=== PATIENT | female | born 1985 | race Two or more races ===

== ENCOUNTER → 2016-08-13 | Outpatient (CLI) | payer OTHER ==
[~2016-08-13] MED LIST: /MOXI40TA OR; DOCU10ELUD PO; IBUP80TA PO; PERC7.5T8 OR; PERCOCET PO; PRENTAB9 PO; TRAM50TA2 OR
== END ==
LOC: M SMT 10:44
PROVIDERS: ATTEND Physician Assistant
DX: N91.0 Primary amenorrhea (principal)

== ENCOUNTER → 2017-02-17 | Outpatient (CLI) | payer OTHER ==
[~2017-02-17] MED LIST changes: +PROHANCE 279.3MG/ML 15ML VIAL (A9576) As Ordered ONE; +PROHANCE 279.3MG/ML 5ML VIAL (A9576) As Ordered ONE
--- NOTE | 2017-02-17 17:43 | REP ---
MRI RIGHT WRIST WITH AND WITHOUT CONTRAST: TECHNIQUE: Axial, sagittal and coronal imaging planes are utilized for T1 and T2 weighted scans obtained without fat saturation. Axial T1 FS, post IV gadolinium axial and coronal T1 FS with the intravenous administration of 20 mL of gadolinium. The triangular fibrocartilage complex appears intact. The scapholunate and lunatotriquetral ligaments are intact. There is mild fluid surrounding the extensor digitorum tendons at the dorsal aspect of the wrist which may represent mild tenosynovitis and tendinitis. Carpal tunnel region is unremarkable. Flexor tendons are intact. No ganglion cyst is seen. There is mild scattered joint fluid. There is a mild amount of fluid in the distal radial ulnar joint. There is no bone marrow edema or occult fracture. There is no evidence of osteomyelitis. There is mild enhancement of the soft tissues surrounding the extensor digitorum tendons. No other abnormal enhancement is seen. IMPRESSION: Triangular fibrocartilage complexes intact. No occult fracture or osteomyelitis. Mild fluid surrounding the extensor digitorum tendons with mild surrounding enhancement most consistent with tendinitis/tenosynovitis. Signed by Andrea Pino MD 02/19/2017 04:21 P
== END ==
LOC: M RAD 14:37
PROVIDERS: ATTEND Family Medicine
DX: M25.531 Pain in right wrist (principal)
CPT/HCPCS: 73223; A9576

== ENCOUNTER → 2017-06-05 | Outpatient (CLI) | payer OTHER | LOC: M RAD 11:10 | DX: N63.14 Unspecified lump in the right breast, lower inner quadrant (principal) | CPT/HCPCS: 77066 ==

== ENCOUNTER → 2017-06-12 | Outpatient (CLI) | payer OTHER ==
[2017-06-12 18:50] LABS: HCG, SERUM QUANTITATIVE 2 MIU/ML
== END ==
LOC: M SMT 11:56
DX: O20.0 Threatened abortion (principal)
CPT/HCPCS: 84702

== ENCOUNTER → 2017-06-14 | Outpatient (CLI) | payer OTHER ==
[2017-06-14 12:29] LABS: HCG, SERUM QUANTITATIVE < 1.0 MIU/ML
== END ==
LOC: M LAB 11:39
DX: O20.0 Threatened abortion (principal)
CPT/HCPCS: 84702

== ENCOUNTER → 2017-09-12 | Outpatient (CLI) | payer OTHER ==
[2017-09-12 14:03] LABS: HCG, SERUM QUANTITATIVE 167 MIU/ML
== END ==
LOC: M SMT 09:27
DX: O20.0 Threatened abortion (principal)
CPT/HCPCS: 84702

== ENCOUNTER → 2017-10-15 | Outpatient (CLI) | payer OTHER ==
[2017-10-15 19:05] LABS: BASO % 0.6 % (0.0-1.0); EOS # 0.4 10^3/uL (0.0-0.50); EOS % 5.9 % (0.0-3.0); HEMATOCRIT 38.2 % (36.0-47.0); HEMOGLOBIN 12.7 g/dl (12.0-15.5); IMMATURE GRANULOCYTE % 0.3 % (0-3.0); LYMPH # 2.3 10^3/uL (1.5-4.5); LYMPH % 35.3 % (24.0-44.0); MEAN CORPUSCULAR HGB CONC 33.2 g/dl (32.0-36.5); MEAN CORPUSCULAR VOLUME 90.1 fl (80.0-96.0); MONO # 0.4 10^3/uL (0.0-0.8); MONO % 5.4 % (0.0-5.0); NEUTROPHILS # 3.4 10^3/uL (1.8-7.7); NEUTROPHILS % 52.5 % (36.0-66.0); PLATELET COUNT, AUTOMATED 247 10^3/uL (150-450); RED BLOOD COUNT 4.24 10^6/uL (4.00-5.40); RED CELL DISTRIBUTION WIDTH 13.8 % (11.5-14.5); WHITE BLOOD COUNT 6.5 10^3/uL (4.0-10.0)
[2017-10-15 19:14] LABS: URIC ACID 5.3 MG/DL (2.6-6.0)
[2017-10-15 19:14] LABS: C REACTIVE PROTEIN QUANTITATIV 1.16 MG/DL (0.00-0.30); RHEUMATOID FACTOR QUANT < 10.0 IU/ML (<15.0)
[2017-10-15 20:10] LABS: ERYTHROCYTE SEDIMENTATION RATE 32 mm/hr (0-20)
[2017-10-18 00:12] LABS: ANTINUCLEAR ANTIBODIES DIRECT Negative (Negative); Lyme Disease IgG/IgM Antibodie <0.91 ISR (0.00-0.90); Lyme Disease IgM Ab Quantitati <0.80 index (0.00-0.79)
== END ==
LOC: M SMT 15:35
DX: M25.562 Pain in left knee (principal)
CPT/HCPCS: 84550

== ENCOUNTER → 2017-11-07 | Outpatient (CLI) | payer OTHER ==
[~2017-11-07] MED LIST changes: -/MOXI40TA OR; +CONRAY-43 43% 50ML VIAL (Q9960) As Ordered; -DOCU10ELUD PO; -IBUP80TA PO; +LIDOCAINE 1% MDV 20ML VIAL As Ordered; -PERC7.5T8 OR; -PERCOCET PO; -PRENTAB9 PO; -PROHANCE 279.3MG/ML 15ML VIAL (A9576) As Ordered ONE; +PROHANCE 279.3MG/ML 5ML VIAL (A9576) As Ordered; -PROHANCE 279.3MG/ML 5ML VIAL (A9576) As Ordered ONE; -TRAM50TA2 OR
== END ==
LOC: M RADPRO 07:08
DX: Z47.89 Encounter for other orthopedic aftercare (principal)
CPT/HCPCS: 27093

== ENCOUNTER 2017-11-18 18:44 | Emergency (ER) | payer OTHER ==
[2017-11-18] MEDS: NS 1,000 ML IV (20:15)
[2017-11-18 20:55] LABS: APPEARANCE, URINE CLEAR (CLEAR); BACTERIA, URINE AUTO NEGATIVE (NEGATIVE); BILIRUBIN, URINE AUTO NEGATIVE (NEGATIVE); BLOOD, URINE BLOOD 3+ (NEGATIVE); COLOR, URINE STRAW (YELLOW); GLUCOSE, URINE (UA) AUTO NEGATIVE (NEGATIVE); KETONE, URINE AUTO NEGATIVE (NEGATIVE); LEUKOCYTE ESTERASE, URINE AUTO NEGATIVE (NEGATIVE); NITRITE, URINE AUTO NEGATIVE (NEGATIVE); PROTEIN, URINE AUTO NEGATIVE (NEGATIVE); RBC, URINE AUTO 126 /HPF (0-3); SPECIFIC GRAVITY URINE AUTO 1.005 (1.002-1.035); SQUAMOUS EPITHELIAL CELL UR AU 0 /HPF (0-6); UROBILINOGEN, URINE AUTO 0.2 mg/dL (0.0-2.0); WBC, URINE AUTO 3 /HPF (0-3)
[2017-11-18 20:56] LABS: BASO % 0.3 % (0.0-1.0); EOS # 0.4 10^3/uL (0.0-0.50); EOS % 2.6 % (0.0-3.0); HEMATOCRIT 39.7 % (36.0-47.0); HEMOGLOBIN 13.2 g/dl (12.0-15.5); IMMATURE GRANULOCYTE % 0.4 % (0-3.0); LYMPH # 2.7 10^3/uL (1.5-4.5); LYMPH % 19.8 % (24.0-44.0); MEAN CORPUSCULAR HEMOGLOBIN 30.1 pg (27.0-33.0); MEAN CORPUSCULAR HGB CONC 33.2 g/dl (32.0-36.5); MEAN CORPUSCULAR VOLUME 90.4 fl (80.0-96.0); MONO # 0.5 10^3/uL (0.0-0.8); MONO % 3.4 % (0.0-5.0); NEUTROPHILS # 10.1 10^3/uL (1.8-7.7); NEUTROPHILS % 73.5 % (36.0-66.0); PLATELET COUNT, AUTOMATED 244 10^3/uL (150-450); RED BLOOD COUNT 4.39 10^6/uL (4.00-5.40); RED CELL DISTRIBUTION WIDTH 13.3 % (11.5-14.5); WHITE BLOOD COUNT 13.7 10^3/uL (4.0-10.0)
[2017-11-18] MEDS: methylPREDNISolone INJ 125 MG/2 ML VIAL (J2930) IV (20:56)
[2017-11-18] MEDS: KETOROLAC 30 MG/ML VIAL (J1885) IV (20:57)
[2017-11-18] MEDS: MORPHINE 4 MG/ML 1ML VIAL/SYRINGE (J2270) IV (20:57)
[2017-11-18 21:18] LABS: ANION GAP 6 MEQ/L (8-16); BLOOD UREA NITROGEN 7 MG/DL (7-18); C REACTIVE PROTEIN QUANTITATIV 0.95 MG/DL (0.00-0.30); CALCIUM LEVEL 8.3 MG/DL (8.5-10.1); CARBON DIOXIDE LEVEL 26 MEQ/L (21-32); CHLORIDE LEVEL 109 MEQ/L (98-107); CPK CREATINE PHOSPHOKINASE 100 U/L (26-192); CREATININE FOR GFR 1.22 MG/DL (0.55-1.30); GLOMERULAR FILTRATION RATE 55.1 (>60); GLUCOSE, FASTING 102 MG/DL (70-100); POTASSIUM SERUM 3.8 MEQ/L (3.5-5.1); SODIUM LEVEL 141 MEQ/L (136-145)
[2017-11-18 21:23] LABS: ERYTHROCYTE SEDIMENTATION RATE 25 mm/hr (0-20)
[2017-11-18] MEDS: OXYCODONE/APAP 5MG/325MG(BULK FOR ED) 1 TABLET PO (21:45)
[2017-11-18] MEDS: HYDROMORPHONE HCL 0.5 MG/ 0.5 ML SYRINGE (J1170 PER 1) IV (22:08)
[2017-11-20 15:06] LABS: ANTINUCLEAR ANTIBODIES DIRECT Negative (Negative)
== END 2017-11-18 22:33 | disposition home or self-care (01) ==
LOC: M ED 18:44
DX: H66.93 Otitis media, unspecified, bilateral (principal); M79.7 Fibromyalgia; Z87.19 Personal history of other diseases of the digestive system; F17.200 Nicotine dependence, unspecified, uncomplicated; Z88.0 Allergy status to penicillin; Z88.1 Allergy status to other antibiotic agents
CPT/HCPCS: J2270

== ENCOUNTER 2018-01-12 10:16 | Emergency (ER) | payer OTHER | END 2018-01-12 13:35 | disposition home or self-care (01) | LOC: M ED 10:16 | DX: H60.92 Unspecified otitis externa, left ear (principal); S90.32XA Contusion of left foot, initial encounter; W18.39XA Other fall on same level, initial encounter; Y92.018 Other place in single-family (private) house as the place of occurrence of the external cause; M79.7 Fibromyalgia; Z88.0 Allergy status to penicillin; Z88.1 Allergy status to other antibiotic agents | CPT/HCPCS: 73630 ==

== ENCOUNTER 2018-02-20 09:59 | Outpatient (RCR) | payer OTHER | END 2018-02-25 | LOC: M PT 09:59 | DX: Z47.89 Encounter for other orthopedic aftercare (principal); M25.552 Pain in left hip; Z98.890 Other specified postprocedural states | CPT/HCPCS: 97110 ==

== ENCOUNTER 2018-05-01 16:30 | Emergency (ER) | payer OTHER ==
[~2018-05-01] VITALS: Ht 160 cm; Wt 100.0 kg
[~2018-05-01 16:30] MED LIST changes: +/MOXI40TA OR; -CONRAY-43 43% 50ML VIAL (Q9960) As Ordered; +DOCU10ELUD PO; +IBUP80TA PO; -LIDOCAINE 1% MDV 20ML VIAL As Ordered; +MUPI2OI TOP; +NEOM1SOL17 AS; +PERC5TAB12 PO; +PERC7.5T8 OR; +PERCOCET PO; +PRENTAB9 PO; -PROHANCE 279.3MG/ML 5ML VIAL (A9576) As Ordered; +TRAM50TA2 OR; +ZITHTAB PO
[2018-05-01 16:31] VITALS: BP 134/61
[2018-05-01] MEDS ORDERED: PREN1TAB15 PO (16:49)
[2018-05-01] MEDS ORDERED: METOCLOPRAMIDE INJ 10MG/2ML VIAL (J2765) IV ONE (17:30)
[2018-05-01] MEDS ORDERED: NS 1,000 ML IV ONE (17:30)
[2018-05-01 18:06] LABS: BASO % 0.5 % (0.0-1.0); EOS # 0.2 10^3/uL (0.0-0.50); EOS % 2.7 % (0.0-3.0); HEMATOCRIT 38.4 % (36.0-47.0); HEMOGLOBIN 12.8 g/dl (12.0-15.5); LYMPH # 2.5 10^3/uL (1.5-4.5); LYMPH % 29.1 % (24.0-44.0); MEAN CORPUSCULAR HEMOGLOBIN 29.6 pg (27.0-33.0); MEAN CORPUSCULAR HGB CONC 33.3 g/dl (32.0-36.5); MEAN CORPUSCULAR VOLUME 88.9 fl (80.0-96.0); MONO # 0.5 10^3/uL (0.0-0.8); MONO % 5.9 % (0.0-5.0); NEUTROPHILS # 5.4 10^3/uL (1.8-7.7); NEUTROPHILS % 61.7 % (36.0-66.0); PLATELET COUNT, AUTOMATED 244 10^3/uL (150-450); RED BLOOD COUNT 4.32 10^6/uL (4.00-5.40); WHITE BLOOD COUNT 8.7 10^3/uL (4.0-10.0)
[2018-05-01 19:41] LABS: ALBUMIN 3.5 GM/DL (3.2-5.2); ALT/SGPT 21 U/L (12-78); BILIRUBIN,DIRECT < 0.1 MG/DL (0.0-0.2); BILIRUBIN,TOTAL 0.1 MG/DL (0.2-1.0); BLOOD UREA NITROGEN 4 MG/DL (7-18); CALCIUM LEVEL 8.8 MG/DL (8.5-10.1); CARBON DIOXIDE LEVEL 25 MEQ/L (21-32); CHLORIDE LEVEL 106 MEQ/L (98-107); CREATININE FOR GFR 0.78 MG/DL (0.55-1.30); GLOMERULAR FILTRATION RATE > 60.0 (>60); GLUCOSE, FASTING 85 MG/DL (70-100); HCG, SERUM QUANTITATIVE 8406 MIU/ML; LIPASE 75 U/L (73-393); POTASSIUM SERUM 4.2 MEQ/L (3.5-5.1); SODIUM LEVEL 140 MEQ/L (136-145); TOTAL PROTEIN 7.1 GM/DL (6.4-8.2)
--- NOTE | 2018-05-01 20:58 | REPVR ---
EXAM: US , Transvaginal EXAM DATE/TIME: 05/01/2018 8:00 PM CLINICAL HISTORY: 32 years old, female; Pain; Other: Abd pain; Gestational age or lmp: 6w 4d; TECHNIQUE: Real-time transvaginal obstetrical ultrasound of the maternal pelvis and a first trimester with image documentation. Transvaginal imaging was used for better evaluation of the fetus and adnexa. COMPARISON: No relevant prior studies available. FINDINGS: GESTATION: Gestation: There is a single intrauterine gestational sac. Heart rate: Cardiac activity is noted at a rate of 126 beats per minute. Placenta: Unremarkable. No subchorionic bleed. BIOMETRY: Creola-Rump length: There is a pole with a crown-rump length measurement of 0.72 cm for a menstrual age of 6 weeks and 4 days. MATERNAL: Uterus: Endovaginally, the uterus measures 7.9 x 4.6 x 5.8 cm. Right adnexa: The right ovary measures 1.8 x 2 x 1.2 cm. Left adnexa: The left ovary measures 1 x 2.2 x 1.3 cm. Blood flow seen in the left ovary on color Doppler and postoperative examination. IMPRESSION: Single live intrauterine with an estimated menstrual age of 6 weeks and 4 days. Expected date of delivery 12/21/2018. Electronically signed by: Lia Guerrero On 05/01/2018 20:58:26 PM
[2018-05-01] MEDS ORDERED: ZOFR4TAB14 PO (21:27)
== END 2018-05-01 22:02 | disposition home or self-care (01) ==
LOC: M ED 16:30
DX: O21.9 Vomiting of pregnancy, unspecified (principal); O99.89 Other specified diseases and conditions complicating pregnancy, childbirth and the puerperium; R10.2 Pelvic and perineal pain; Z3A.01 Less than 8 weeks gestation of pregnancy; O26.891 Other specified pregnancy related conditions, first trimester; M79.7 Fibromyalgia; Z88.0 Allergy status to penicillin; Z88.1 Allergy status to other antibiotic agents; O99.331 Smoking (tobacco) complicating pregnancy, first trimester; F17.210 Nicotine dependence, cigarettes, uncomplicated
CPT/HCPCS: 36415; 76801; 76817; 80048; 80076; 81001; 83690; 84702; 85025; 93976; 96361; 96374; 99284; J2765

== ENCOUNTER → 2018-05-04 | Outpatient (CLI) | payer OTHER ==
[~2018-05-04] MED LIST changes: +PREN1TAB15 PO; +ZOFR4TAB14 PO
== END ==
LOC: M LAB 13:36
PROVIDERS: ATTEND Family Medicine
DX: Z32.00 Encounter for pregnancy test, result unknown (principal)

== ENCOUNTER → 2018-05-12 | Outpatient (CLI) | payer OTHER ==
[2018-05-12 13:52] LABS: BASO % 0.5 % (0.0-1.0); EOS # 0.3 10^3/uL (0.0-0.50); EOS % 3.6 % (0.0-3.0); HEMATOCRIT 37.6 % (36.0-47.0); HEMOGLOBIN 12.3 g/dl (12.0-15.5); LYMPH # 2.6 10^3/uL (1.5-4.5); LYMPH % 33.3 % (24.0-44.0); MEAN CORPUSCULAR HEMOGLOBIN 29.6 pg (27.0-33.0); MEAN CORPUSCULAR HGB CONC 32.7 g/dl (32.0-36.5); MEAN CORPUSCULAR VOLUME 90.6 fl (80.0-96.0); MONO # 0.4 10^3/uL (0.0-0.8); MONO % 4.6 % (0.0-5.0); NEUTROPHILS # 4.5 10^3/uL (1.8-7.7); NEUTROPHILS % 57.6 % (36.0-66.0); PLATELET COUNT, AUTOMATED 232 10^3/uL (150-450); RED BLOOD COUNT 4.15 10^6/uL (4.00-5.40); WHITE BLOOD COUNT 7.8 10^3/uL (4.0-10.0)
[2018-05-12 14:13] LABS: GLUCOSE CHALLENGE TEST 1 HOUR 164 MG/DL (LESS THAN 140)
[2018-05-12 15:28] LABS: CHLAMYDIA DNA AMPLIFICATION NEGATIVE (NEGATIVE); GC DNA AMPLIFICATION NEGATIVE (NEGATIVE)
[2018-05-13 10:35] LABS: RUBELLA IgG QUALITATIVE EQUIVOCAL (IMMUNE)
[2018-05-13 11:03] LABS: HEPATITIS C VIRUS ABY INDEX 0.1 INDEX (<0.8)
[2018-05-13 11:44] LABS: HIV 1&2 SCREEN CENTAUR NEGATIVE (NEGATIVE)
== END ==
LOC: M SMT 11:07
PROVIDERS: ATTEND Obstetrics & Gynecology
DX: Z36.89 Encounter for other specified antenatal screening (principal)

== ENCOUNTER → 2018-05-18 | Outpatient (CLI) | payer OTHER | LOC: M LAB 07:57 | PROVIDERS: ATTEND Obstetrics & Gynecology | DX: Z36.89 Encounter for other specified antenatal screening (principal); Z3A.00 Weeks of gestation of pregnancy not specified ==

== ENCOUNTER 2018-05-26 14:09 | Emergency (ER) | payer OTHER ==
[~2018-05-26] VITALS: Ht 160 cm; Wt 95.5 kg
[2018-05-26] MEDS ORDERED: NORCO, ANEXSIA 5/325MG TABLET (HYDROcodone/ACETAMINOPHEN) PO ONE ×2 (14:30→16:00)
--- NOTE | 2018-05-26 15:11 | REP ---
Clinical: Trauma/fall. Technique: AP, lateral, oblique views of the right ankle. Findings: There is a nondisplaced oblique fracture involving the distal tibial metaphysis extending to the articular surface. Overlying soft tissue swelling noted. A small avulsion fracture at the tip of the medial malleolus is also identified. Impression: Nondisplaced oblique fracture of the distal tibial metaphysis extends to the articular surface. Small avulsion fracture of the medial malleolus. Electronically Signed by Bryce Nunn MD 05/26/2018 03:03 P
[2018-05-26 16:02] VITALS: BP 112/76
== END 2018-05-26 16:16 | disposition home or self-care (01) ==
LOC: M ED 14:09
DX: O9A.211 Injury, poisoning and certain other consequences of external causes complicating pregnancy, first trimester (principal); S82.234A Nondisplaced oblique fracture of shaft of right tibia, initial encounter for closed fracture; X50.9XXA Other and unspecified overexertion or strenuous movements or postures, initial encounter; Y92.410 Unspecified street and highway as the place of occurrence of the external cause; Z3A.10 10 weeks gestation of pregnancy; Z88.0 Allergy status to penicillin; Z88.1 Allergy status to other antibiotic agents; O99.331 Smoking (tobacco) complicating pregnancy, first trimester; F17.210 Nicotine dependence, cigarettes, uncomplicated

== ENCOUNTER 2018-05-26 21:49 | Emergency (ER) | payer OTHER ==
[~2018-05-26] VITALS: Ht 160 cm; Wt 100.0 kg
[2018-05-26 22:00] VITALS: BP 108/58
[2018-05-26] MEDS ORDERED: ACETAMINOPHEN 325 MG TAB PO ONE (22:30)
[2018-05-26] MEDS ORDERED: METOCLOPRAMIDE INJ 10MG/2ML VIAL (J2765) IV ONE (22:30)
--- NOTE | 2018-05-26 23:42 | REPVR ---
EXAM: US Duplex Right Lower Extremity Veins, Limited EXAM DATE/TIME: 05/26/2018 11:31 PM CLINICAL HISTORY: 32 years old, female; Pain; Other: Ankle; Prior surgery; Surgery date: 6+ months; Additional info: Prev. HX, preg, distal tib FX TECHNIQUE: Real-time Duplex ultrasound of the Right Lower Extremity with 2-D jimenez scale, color Doppler flow and spectral waveform analysis. Limited exam was focused on the right lower extremity veins. COMPARISON: US Duplex, Ext,LOWER veins,unilat 03/19/2014 3:59 PM FINDINGS: Right deep veins: Unremarkable. The common femoral, femoral, proximal profunda femoral and popliteal veins are patent without thrombus. Normal Doppler waveforms. Normal compressibility and/or augmentation response. Right superficial veins: Unremarkable. Saphenofemoral junction is patent without thrombus. Soft tissues: Unremarkable. IMPRESSION: No acute findings. No evidence of deep vein thrombosis. Electronically signed by: Petros Durand On 05/26/2018 23:42:13 PM
--- NOTE | 2018-05-27 07:54 | REP ---
Clinical: Trauma. Technique: AP and lateral views of the right tibia / fibula. Findings: Nondisplaced posterior and medial malleolar fractures are identified of the distal tibia. Remainder examination appears normal. Impression: Nondisplaced medial and posterior malleolar fractures of the distal tibia. Electronically Signed by Bryce Nunn MD 05/27/2018 07:45 A
== END 2018-05-27 01:01 | disposition home or self-care (01) ==
LOC: EDBD 21:49 → M ED 21:49
DX: S82.301D Unspecified fracture of lower end of right tibia, subsequent encounter for closed fracture with routine healing (principal); X58.XXXD Exposure to other specified factors, subsequent encounter; Y92.89 Other specified places as the place of occurrence of the external cause; M79.7 Fibromyalgia; Z88.0 Allergy status to penicillin; Z88.1 Allergy status to other antibiotic agents
CPT/HCPCS: 73590; 93971; 96374; 99284; J2765

== ENCOUNTER → 2018-07-06 | Outpatient (CLI) | payer OTHER | LOC: M LAB 10:17 | PROVIDERS: ATTEND Advanced Practice Midwife | DX: Z34.82 Encounter for supervision of other normal pregnancy, second trimester (principal); Z36.89 Encounter for other specified antenatal screening ==

== ENCOUNTER → 2018-07-24 | Outpatient (CLI) | payer OTHER ==
--- NOTE | 2018-07-24 16:57 | REP ---
Clinical: Anatomical evaluation. Comparison: None . Findings: Examination demonstrates a single live intrauterine in variable presentation. motion is identified by technologist. Placenta is low-lying, posterior and grade zero approximately 1.6 cm from the closed internal os. Amniotic fluid volume is normal. Cervix measures 3.9 cm in length and appears closed. No evidence for nuchal cord. Gestational age by LMP 19 weeks 6 days with ADRIANO 12/12/2018 . Gestational age by current measurements 19 weeks 1 day with ADRIANO 12/17/2018 . FHR equals 153 beats per minute. BPD 4.1 cm 18 weeks 3 days HC 15.9 cm 18 weeks 5 days AC 14.6 cm 19 weeks 6 days FL 3.0 cm 19 weeks 2 days HL 2.9 cm 19 weeks 3 days HC/AC ratio 1.09 Estimated weight 293 grams ( 31st percentile). Anatomical assessment demonstrates normal structures including choroid plexus, cerebellum/posterior fossa, diaphragm, stomach, three-vessel cord, and bladder. Impression: 1. Low-lying placenta 1.6 cm from the closed internal os. 2. Appropriate interval growth. 3. Limited anatomical assessment warrants reevaluation and follow-up. Electronically Signed by Bryce Nunn MD 07/24/2018 04:49 P
== END ==
LOC: M RAD 14:24
PROVIDERS: ATTEND Advanced Practice Midwife
DX: O24.112 Pre-existing type 2 diabetes mellitus, in pregnancy, second trimester (principal); Z3A.19 19 weeks gestation of pregnancy

== ENCOUNTER → 2018-08-20 | Outpatient (CLI) | payer OTHER ==
[~2018-08-20] MED LIST changes: -/MOXI40TA OR; +AVEL1TAB2 OR; +CORTOTSO AS; -DOCU10ELUD PO; +DOCU5LIQ PO; -NEOM1SOL17 AS; +OXYC1TAB23 PO; -PERCOCET PO
--- NOTE | 2018-08-20 11:46 | REP ---
OB ULTRASOUND: Real-time sonographic evaluation of the gravid uterus is performed. There is a single living intrauterine gestation. Estimated gestational age 23 weeks 5 days, EDC 12/12/2018. Today's measurements indicate appropriate growth. BPD 54 mm = 22 weeks 3 days, 17th percentile HC 207 mm = 22 weeks 5 days, 22nd percentile AC 197 mm = 24 weeks 2 days, 63rd percentile Femur length 43 mm = 23 weeks 6 days, 54th percentile HC/AC ratio 1.05 within normal range. Estimated weight 641 grams, 50th percentile. Cervix is closed and measures 3.8 cm in length. heart rate 163 beats per minute. SEEN/GROSSLY UNREMARKABLE Lateral ventricles Yes Posterior fossa No Upper lip Yes Four-chamber heart Yes LVOT No RVOT No Stomach Yes Cord insertion Yes Three vessel cord Yes Kidneys Yes Bladder Yes Spine Yes position: Vertex. Placenta: Posterior and grade 0 with no previa or abruption. Amniotic fluid: Within normal limits. Electronically Signed by Andrea Pino MD 08/20/2018 04:36 P
== END ==
LOC: M RAD 09:53
PROVIDERS: ATTEND Advanced Practice Midwife
DX: O24.112 Pre-existing type 2 diabetes mellitus, in pregnancy, second trimester (principal); Z3A.23 23 weeks gestation of pregnancy

== ENCOUNTER → 2018-09-04 | Outpatient (CLI) | payer OTHER ==
--- NOTE | 2018-09-04 18:05 | REP ---
OB ULTRASOUND: Real-time sonographic evaluation of the gravid uterus is performed utilizing transabdominal and endovaginal technique. There is a single living intrauterine gestation, estimated gestational age 24 weeks 4 days based on the first ultrasound, EDC 12/21/2018. Today's measurements indicate appropriate growth. BPD 58 mm = 23 weeks 6 days, 30th percentile HC 224 mm = 24 weeks 3 days, 45th percentile AC 208 mm = 25 weeks 3 days, 66th percentile FL 47 mm = 25 weeks 6 days, 75th percentile HC/AC ratio 1.07, within normal range. Estimated weight 799 grams, 65th percentile. Cervic closed and measures 3.5 cm in length. heart rate 131 beats per minute. SEEN/GROSSLY UNREMARKABLE Lateral ventricles no Posterior fossa no Upper lip no Four-chamber heart no LVOT no RVOT no Stomach yes Cord insertion yes Three vessel cord yes Kidneys no Bladder yes Spine yes position: Vertex. Placenta: Posterior and grade 1 with no previa or abruption. Amniotic fluid: Within normal limits. Electronically Signed by Andrea Pino MD 09/09/2018 11:49 A
== END ==
LOC: M RAD 14:59
PROVIDERS: ATTEND Advanced Practice Midwife
DX: O24.112 Pre-existing type 2 diabetes mellitus, in pregnancy, second trimester (principal); Z3A.24 24 weeks gestation of pregnancy

== ENCOUNTER → 2018-09-25 | Outpatient (CLI) | payer OTHER ==
--- NOTE | 2018-09-25 13:40 | REP ---
Clinical: Anatomical evaluation. Comparison: 09/04/2018 . Findings: Examination demonstrates a single live intrauterine in cephalic presentation. motion is identified by technologist. Placenta is noted posterior and grade zero without evidence for placenta previa or abruption. Amniotic fluid volume is normal. Cervix measures 3.6 cm in length and appears closed. No evidence for nuchal cord. Gestational age by LMP 28 weeks 6 days with ADRIANO 12/12/2018 . Gestational age by current measurements 27 weeks 4 days with ADRIANO 12/21/2018 . FHR equals 136 beats per minute. Estimated weight 1142 grams ( 48th percentile). Biophysical profile score: 8/8 Anatomical assessment demonstrates normal structures including cranium, choroid plexus, cavum, facial features, lungs, four-chamber heart/ventricular outflow tracts, diaphragm, stomach, cord insertion/three-vessel cord, kidneys/bladder, spine, and extremities. Impression: Single live intrauterine in cephalic presentation demonstrating appropriate interval growth. In conjunction with prior examination anatomical assessment is complete and normal. No gross abnormalities are identified. Electronically Signed by Bryce Nunn MD 09/25/2018 01:30 P
== END ==
LOC: M RAD 10:57
PROVIDERS: ATTEND Obstetrics & Gynecology
DX: O24.112 Pre-existing type 2 diabetes mellitus, in pregnancy, second trimester (principal); Z3A.28 28 weeks gestation of pregnancy

== ENCOUNTER → 2018-10-01 | Outpatient (CLI) | payer OTHER ==
[2018-10-01 11:29] LABS: HEMATOCRIT 33.1 % (36.0-47.0); HEMOGLOBIN 11.3 g/dl (12.0-15.5); MEAN CORPUSCULAR HEMOGLOBIN 31.3 pg (27.0-33.0); MEAN CORPUSCULAR HGB CONC 34.1 g/dl (32.0-36.5); MEAN CORPUSCULAR VOLUME 91.7 fl (80.0-96.0); PLATELET COUNT, AUTOMATED 207 10^3/uL (150-450); RED BLOOD COUNT 3.61 10^6/uL (4.00-5.40); WHITE BLOOD COUNT 9.4 10^3/uL (4.0-10.0)
== END ==
LOC: M LAB 11:01
PROVIDERS: ATTEND Advanced Practice Midwife
DX: O24.112 Pre-existing type 2 diabetes mellitus, in pregnancy, second trimester (principal); Z3A.00 Weeks of gestation of pregnancy not specified

== ENCOUNTER → 2018-10-16 | Outpatient (CLI) | payer OTHER ==
--- NOTE | 2018-10-16 11:16 | REP ---
OBSTETRIC SONOGRAPHY: HISTORY: Supervision of . growth study. Diabetes in . FINDINGS: Scanning through the gravid uterus demonstrates a viable single intrauterine gestation in a cephalic lie. motion is observed and heart rate is recorder 168 beats per minute. A posterior grade 2 placenta is seen without evidence of previa or abruption. Amniotic fluid is subjectively normal. No extrauterine abnormalities observed. There has been appropriate interval growth. BIOMETRY CHART: BPD 7.8 cm = 31 weeks 2 days HC 29.1 cm = 32 weeks 1 day AC 27.2 cm = 31 weeks 2 days FL 6.3 cm = 32 weeks 4 days HL 5.5 cm = 32 weeks 0 days HC/AC ratio normal 1.07 Cephalic index normal 0.74 Estimated weight 1829 grams, 4 pounds 0 ounces, 67th percentile for 30 weeks 4 days. PIETER normal 12.4 cm. Biophysical profile score 8 out of a possible 8. S/D ratio in the umbilical cord artery by Doppler normal 1.95. IMPRESSION: Viable single intrauterine gestation at 31 weeks 6 days by today's composite criteria. Expected gestational age estimate based on prior sonography 30 weeks 4 days. ADRIANO by prior sonography December 21, 2018. There has been appropriate interval growth. I Electronically Signed by Kings Castro MD 10/16/2018 03:30 P
== END ==
LOC: M RAD 09:17
PROVIDERS: ATTEND Obstetrics & Gynecology
DX: O24.112 Pre-existing type 2 diabetes mellitus, in pregnancy, second trimester (principal); Z3A.31 31 weeks gestation of pregnancy

== ENCOUNTER → 2018-11-05 | Outpatient (CLI) | payer OTHER, MEDICAID ==
[2018-11-05 18:59] LABS: ALBUMIN 2.8 GM/DL (3.2-5.2); ALT/SGPT 13 U/L (12-78); AMYLASE 45 U/L (25-115); BILIRUBIN,TOTAL 0.3 MG/DL (0.2-1.0); BLOOD UREA NITROGEN 5 MG/DL (7-18); CALCIUM LEVEL 8.4 MG/DL (8.5-10.1); CARBON DIOXIDE LEVEL 22 MEQ/L (21-32); CHLORIDE LEVEL 109 MEQ/L (98-107); CREATININE FOR GFR 0.52 MG/DL (0.55-1.30); GLOMERULAR FILTRATION RATE > 60.0 (>60); GLUCOSE, FASTING 77 MG/DL (70-100); LIPASE 71 U/L (73-393); POTASSIUM SERUM 4.2 MEQ/L (3.5-5.1); SODIUM LEVEL 139 MEQ/L (136-145); TOTAL PROTEIN 6.2 GM/DL (6.4-8.2)
[2018-11-05 19:05] LABS: HEMATOCRIT 34.6 % (36.0-47.0); HEMOGLOBIN 11.4 g/dl (12.0-15.5); MEAN CORPUSCULAR HEMOGLOBIN 30.2 pg (27.0-33.0); MEAN CORPUSCULAR HGB CONC 32.9 g/dl (32.0-36.5); MEAN CORPUSCULAR VOLUME 91.5 fl (80.0-96.0); PLATELET COUNT, AUTOMATED 212 10^3/uL (150-450); RED BLOOD COUNT 3.78 10^6/uL (4.00-5.40)
[2018-11-05 19:08] LABS: APPEARANCE, URINE CLEAR (CLEAR); BACTERIA, URINE AUTO NEGATIVE (NEGATIVE); BILIRUBIN, URINE AUTO NEGATIVE (NEGATIVE); BLOOD, URINE BLOOD NEGATIVE (NEGATIVE); COLOR, URINE YELLOW (YELLOW); GLUCOSE, URINE (UA) AUTO NEGATIVE (NEGATIVE); KETONE, URINE AUTO NEGATIVE (NEGATIVE); LEUKOCYTE ESTERASE, URINE AUTO NEGATIVE (NEGATIVE); MUCUS, URINE SMALL (NEGATIVE); NITRITE, URINE AUTO NEGATIVE (NEGATIVE); PROTEIN, URINE AUTO NEGATIVE (NEGATIVE); RBC, URINE AUTO 2 /HPF (0-3); SPECIFIC GRAVITY URINE AUTO 1.019 (1.002-1.035); SQUAMOUS EPITHELIAL CELL UR AU 1 /HPF (0-6); WBC, URINE AUTO 1 /HPF (0-3)
== END ==
LOC: M SMT 11:04
PROVIDERS: ATTEND Obstetrics & Gynecology
DX: O24.311 Unspecified pre-existing diabetes mellitus in pregnancy, first trimester (principal); Z3A.00 Weeks of gestation of pregnancy not specified

== ENCOUNTER → 2018-11-06 | Outpatient (CLI) | payer OTHER ==
--- NOTE | 2018-11-06 16:14 | REP ---
Obstetric sonography: History: Supervision of growth study. Gestational diabetes. Biophysical profile score. Findings: Scanning demonstrates a viable single intrauterine gestation in a cephalic lie. motion is observed and heart rate is recorded at 130 beats per minute. A right posterior lateral placenta is seen grade 2 without evidence of previa. Amniotic fluid is subjectively normal. Closed cervical length is 2.6 cm. No extrauterine abnormalities observed. There has been appropriate interval growth. Umbilical cord is seen draping across the shoulders. Exam quality was inhibited by gestational age and crowding. The following anatomic structures were identified today and felt to be unremarkable: cranium, face and profile, lungs, diaphragm, left-sided stomach, abdominal wall cord insertion, three-vessel cord, kidneys and bladder, and spine. Biometry chart: BPD 8.3 cm 33 weeks 2 days Head circumference 30.9 cm 34 weeks 3 days Abdominal circumference 30.3 cm 34 weeks 2 days Femur length to 6.4 cm 33 weeks 2 days Humeral length 6.0 cm 34 weeks 6 days HC/AC ratio normal 1.02, cephalic index normal 0.74, estimated weight 2307 grams, 5 pounds 1 ounce, 51st percentile for 33 weeks 4 days. Biophysical profile score eight out of a possible eight. PIETER normal 10.7 cm. SD ratio normal 2.56 by Doppler. Impression: Viable single intrauterine gestation at 34 weeks 0 days by today's composite criteria. Expected gestational age estimate based on prior sonography is 33 weeks 4 days. ADRIANO by prior sonography of 12/21/2018. There has been appropriate interval growth. Electronically Signed by Kings Castro MD 11/06/2018 08:21 P
== END ==
LOC: M RAD 11:00
PROVIDERS: ATTEND Obstetrics & Gynecology
DX: O24.113 Pre-existing type 2 diabetes mellitus, in pregnancy, third trimester (principal); Z3A.34 34 weeks gestation of pregnancy

== ENCOUNTER → 2018-11-13 | Outpatient (CLI) | payer OTHER ==
--- NOTE | 2018-11-13 20:54 | REP ---
OB ULTRASOUND AND BIOPHYSICAL PROFILE: Real-time sonographic evaluation of the gravid uterus performed. There is a single living intrauterine gestation, estimated gestational age 34 weeks 4 days, EDC 12/21/2018. Cervix is closed and measures approximately 2.7 cm in length. heart rate 135 beats per minute. Amniotic fluid within normal limits, PIETER 10.4 with a normal range of 8.0 to 24.9. Biophysical profile score 8/8. S/D ratio 2.94 and RI 0.66 within normal range. position vertex. Placenta is grade 3 and posterior with no previa or abruption. Electronically Signed by Andrea Pino MD 11/15/2018 09:13 P
== END ==
LOC: M RAD 18:04
PROVIDERS: ATTEND Obstetrics & Gynecology
DX: O24.113 Pre-existing type 2 diabetes mellitus, in pregnancy, third trimester (principal); Z3A.34 34 weeks gestation of pregnancy

== ENCOUNTER → 2018-11-20 | Outpatient (CLI) | payer OTHER ==
--- NOTE | 2018-11-20 12:22 | REP ---
OB ULTRASOUND, BIOPHYSICAL PROFILE: Real-time sonographic evaluation of the gravid uterus performed. There is a single living intrauterine gestation. The estimated gestational age is reportedly 35 weeks 4 days, EDC 12/21/2018. heart rate is 129 beats per minute. Amniotic fluid is within normal limits, PIETER 11.9 within normal range of 7.8 to 24.9. Biophysical profile score 8/8. S/D ratio 2.42 within normal range of 2.0 to 3.0. RI 0.59 within normal range of 0.59 to 0.75. position is vertex. Placenta posterior and fundal and grade 2 with no previa or abruption. Electronically Signed by Andrea Pino MD 11/24/2018 05:30 P
== END ==
LOC: M RAD 11:06
PROVIDERS: ATTEND Obstetrics & Gynecology
DX: O24.113 Pre-existing type 2 diabetes mellitus, in pregnancy, third trimester (principal); Z3A.35 35 weeks gestation of pregnancy

== ENCOUNTER → 2018-11-23 | Outpatient (REF) | payer OTHER | LOC: M LAB REF 17:18 | PROVIDERS: ATTEND Obstetrics & Gynecology | DX: O24.113 Pre-existing type 2 diabetes mellitus, in pregnancy, third trimester (principal); Z3A.00 Weeks of gestation of pregnancy not specified ==

== ENCOUNTER → 2018-11-27 | Outpatient (CLI) | payer OTHER ==
[~2018-11-27] MED LIST changes: +LOVE1INJ SC; +TUMS500C PO; +tylenol pm PO
--- NOTE | 2018-11-27 11:32 | REP ---
Clinical: Growth evaluation. Comparison: 11/20/2018 Findings: Examination demonstrates a single live intrauterine in cephalic presentation. motion is identified by technologist. Placenta is noted posterior/right lateral and grade II without evidence for placenta previa or abruption. Amniotic fluid volume is normal. Cervix appears closed. No evidence for nuchal cord. Gestational age by LMP 36 weeks 4 days with ADRIANO 12/21/2018. Gestational age by current measurements 36 weeks 0 days with ADRIANO 12/25/2018. FHR equals 163 beats per minute. BPD 8.9 cm 35 weeks 6 days HC 31.9 cm 36 weeks 0 days AC 31.3 cm 35 weeks 2 days FL 7.1 cm 36 weeks 3 days HL 6.3 cm 36 weeks 5 days HC/AC ratio 1.02 Estimated weight 2739 grams ( 37 percentile). Biophysical profile score: 12/03 Amniotic fluid index: 17.0 cm Umbilical cord SD ratio: 1.56 Impression: Single live advanced gestation in cephalic presentation demonstrating appropriate interval growth. Biophysical profile score and amniotic fluid volume are normal. Electronically Signed by Bryce Nunn MD 11/27/2018 11:24 A
== END ==
LOC: M RAD 10:36
PROVIDERS: ATTEND Obstetrics & Gynecology
DX: O24.113 Pre-existing type 2 diabetes mellitus, in pregnancy, third trimester (principal); Z3A.36 36 weeks gestation of pregnancy

== ENCOUNTER → 2018-12-04 | Outpatient (CLI) | payer OTHER ==
[~2018-12-04] MED LIST changes: +HEPA10009 IJ
--- NOTE | 2018-12-05 09:58 | REP ---
LIMITED OB ULTRASOUND: Real-time ultrasound evaluation of the gravid uterus performed. There is a single living intrauterine gestation, the estimated gestational age is reportedly 37 weeks 4 days, EDC 12/21/2018. heart rate 133 beats per minute. Amniotic fluid is within normal limits, PIETER 13.1 with a normal range of 7.4 to 24.1. Biophysical profile score 8/8. S/D ratio 2.10, with a normal range of 1.6 to 2.6. RI 0.52, below normal range of 0.59 to 0.75. position vertex. Placenta posterior, fundal and grade 2 with no previa or abruption. Electronically Signed by Andrea Pino MD 12/07/2018 11:37 A
== END ==
LOC: M RAD 14:21
PROVIDERS: ATTEND Obstetrics & Gynecology
DX: O24.113 Pre-existing type 2 diabetes mellitus, in pregnancy, third trimester (principal); Z3A.37 37 weeks gestation of pregnancy

== ENCOUNTER 2018-12-07 09:30 | Inpatient (IN) | payer OTHER ==
[~2018-12-07] VITALS: Ht 160 cm; Wt 94.3 kg
[~2018-12-07 09:30] MED LIST changes: -HEPA10009 IJ
[2018-12-16] MEDS ORDERED: LR 1,000 ML IV SCH (06:21)
[2018-12-16] MEDS ORDERED: LACTATED RINGER'S 1000 ML IV STA (06:21)
[2018-12-16] MEDS ORDERED: HEPA10009 IJ (06:24)
[2018-12-16] MEDS ORDERED: BICITRA 30ML SOLN UDC PO ONE (06:30)
[2018-12-16] MEDS ORDERED: CLINDAMYCIN 900 MG in APPROPRIATE DILUENT 1 EA IV ONE (06:30)
[2018-12-16] MEDS ORDERED: MORPHINE PRES-FREE INJ 10 MG/10 ML VIAL (J2274) As Ordered ONE (07:12)
[2018-12-16] MEDS ORDERED: OXYTOCIN INJ 10 UNITS/ML VIAL (J2590) As Ordered ONE ×2 (07:12→09:03)
[2018-12-16 07:14] LABS: HEMATOCRIT 34.1 % (36.0-47.0); HEMOGLOBIN 11.7 g/dl (12.0-15.5); MEAN CORPUSCULAR HEMOGLOBIN 31.3 pg (27.0-33.0); MEAN CORPUSCULAR HGB CONC 34.3 g/dl (32.0-36.5); MEAN CORPUSCULAR VOLUME 91.2 fl (80.0-96.0); PLATELET COUNT, AUTOMATED 198 10^3/uL (150-450); RED BLOOD COUNT 3.74 10^6/uL (4.00-5.40); WHITE BLOOD COUNT 10.4 10^3/uL (4.0-10.0)
[2018-12-16] MEDS ORDERED: ONDANSETRON 4MG/2ML VIAL (J2405) IV PRN ×3 (07:52→10:00)
[2018-12-16] MEDS ORDERED: NALBUPHINE HCL 10 MG/ML AMP (J2300) IV PRN ×2 (07:52→10:00)
[2018-12-16] MEDS ORDERED: NALOXONE INJ 0.4 MG/1 ML VIAL (J2310) IV PRN ×2 (07:52)
[2018-12-16] MEDS ORDERED: METOCLOPRAMIDE INJ 10MG/2ML VIAL (J2765) IV PRN (07:52)
[2018-12-16] MEDS ORDERED: PHENYLephrine HCL 500 MCG/5 ML (100MCG/ML) SYRINGE (J2370) As Ordered ONE (08:05)
[2018-12-16] MEDS ORDERED: ONDANSETRON 4MG/2ML VIAL (J2405) As Ordered ONE (08:05)
[2018-12-16] MEDS ORDERED: dexameTHASONE 4 MG/ML 1ML VIAL (J1100) As Ordered ONE ×2 (08:05→09:03)
[2018-12-16] MEDS: DOCUSATE SODIUM 100 MG CAP PO SCH ×2 (09:00→20:37)
[2018-12-16] MEDS: PRENATAL VITAMINS CHEWABLE TABLET PO SCH (09:00)
[2018-12-16] MEDS ORDERED: AZTREONAM 2 GM in D5W MINI-BAG PLUS 50 ML IV ONE (09:00)
[2018-12-16] MEDS ORDERED: OXYTOCIN 30 UNITS IN 0.9% NaCl 500ML IV BAG (J2590) As Ordered ONE (09:20)
[2018-12-16] MEDS ORDERED: RHOGAM 300 MCG (1500 IU) INJ (J2790) IM SCH (09:30)
[2018-12-16] MEDS ORDERED: MOM 30ML SUSPENSION UDC PO PRN (09:30)
[2018-12-16] MEDS ORDERED: MEASLES,MUMPS,RUBELLA VACCINE INJ (MMR-II) (90707) SC SCH (09:30)
[2018-12-16] MEDS ORDERED: OXYTOCIN DRIP 30 UNITS in APPROPRIATE DILUENT 1 EA IV SCH (09:30)
[2018-12-16] MEDS ORDERED: OXYC1TAB23 PO (09:44)
[2018-12-16] MEDS ORDERED: diphenhydrAMINE INJ 50MG/ML VIAL (J1200) IV PRN ×2 (10:00)
[2018-12-16] MEDS ORDERED: fentaNYL 100 MCG/2 ML INJECTION (J3010) IV PRN (10:00)
[2018-12-16] MEDS ORDERED: oxyCODONE 5MG TAB PO PRN (10:00)
[2018-12-16 11:08] VITALS: BP 94/53
[2018-12-16 11:45] VITALS: BP 98/52
[2018-12-16 12:15] VITALS: BP 96/50
[2018-12-16] MEDS: diphenhydrAMINE INJ 50MG/ML VIAL (J1200) IV PRN ×2 (13:39→20:37)
[2018-12-16 13:45] VITALS: BP 98/56
[2018-12-16] MEDS: LR 1,000 ML IV SCH (14:57)
[2018-12-16 16:38] VITALS: BP 100/52
[2018-12-16 18:00] VITALS: BP 109/51
[2018-12-16] MEDS: ENOXAPARIN 40 MG/0.4 ML SYRINGE (J1650) SC SCH (20:37)
[2018-12-17] VITALS (7 sets, daily range): BP systolic 91–115; BP diastolic 51–62
[2018-12-17] MEDS: LR 1,000 ML IV SCH (01:43)
[2018-12-17] MEDS: PERCOCET 5MG/325MG TAB PO PRN ×6 (01:59→22:51)
[2018-12-17 07:09] LABS: HEMOGLOBIN 10.4 g/dl (12.0-15.5); MEAN CORPUSCULAR HEMOGLOBIN 31.1 pg (27.0-33.0); MEAN CORPUSCULAR HGB CONC 33.5 g/dl (32.0-36.5); MEAN CORPUSCULAR VOLUME 92.8 fl (80.0-96.0); PLATELET COUNT, AUTOMATED 195 10^3/uL (150-450); RED BLOOD COUNT 3.34 10^6/uL (4.00-5.40); WHITE BLOOD COUNT 12.5 10^3/uL (4.0-10.0)
[2018-12-17] MEDS: PRENATAL VITAMINS CHEWABLE TABLET PO SCH (07:43)
--- NOTE | 2018-12-17 08:02 | RO ---
DATE OF PROCEDURE: 12/16/2018 PREOPERATIVE DIAGNOSES: 1. History of prior two sections, for repeat section. 2. Satisfied parity with undesired fertility. POSTPROCEDURE DIAGNOSIS: 1. History of prior two sections, for repeat section. 2. Satisfied parity with undesired fertility. PROCEDURE PERFORMED: Repeat section with bilateral tubal ligation using Renova method. SURGEON: Kassy Cade MD [employer] REPRESENTATIVE: Loreta Lemons CNM ANESTHESIA: Spinal. ESTIMATED BLOOD LOSS: 500 mL. IV FLUIDS: 1700 mL of lactated Ringer's solution URINE OUTPUT: 25 mL. PREOPERATIVE ANTIBIOTICS: 900 mg of clindamycin, 2 grams of Azactam. OPERATIVE FINDINGS: Live born male infant, scores 9 and 9, weight was 7 pounds 2 ounces, 3230 grams. SPECIMENS: Cord blood and bilateral segments of fallopian tube. DESCRIPTION OF OPERATION: After informed consent was obtained and written consent was reviewed, the patient brought to the operating room where spinal anesthesia was then placed. She was then placed in supine position with a left lateral tilt. Keller catheter was placed and set to gravity. She was then prepped and draped in normal sterile fashion. Time out in the operating room was then performed identifying the patient, procedure to be performed, as well as drug allergies. Anesthesia was tested and deemed to be adequate. Pfannenstiel skin incision was then made along the previous skin incision and this was carried down to the underlying rectus fascia. Fascia was scored and this incision was extended bilaterally. The fascia was then dissected off the underlying rectus muscles, both superiorly and inferiorly. The rectus muscles were in the midline. The peritoneum was then entered sharply. The bladder blade was then placed to retract back the bladder. Curvilinear incision was then made in the lower uterine segment. Amniotomy was then performed productive of clear fluid. The uterine incision was then extended. head was brought to the level of the incision atraumatically and delivered, along with shoulders and corpus. Cord was clamped times two and the was then delivered over to the warmer table with a good cry. Cord blood was then obtained. Placenta was delivered grossly intact. The uterus and then exteriorized and cleared of all clots and debris. The uterine incision was then closed in two layers, first in a running locking fashion followed by second layer for imbrication in a running nonlocking fashion. The abdomen was then suctioned, irrigated. Severe figure of eight stitches were placed for hemostasis along the uterine incision. Bilateral Renova tubal ligation was then performed. A window was created in the right mesosalpinx. This area was double ligated with chromic and was excised with good hemostasis noted. In a similar fashion, left fallopian tube was placed on traction. A window was created in the mesosalpinx. An area was doubly ligated with 3-0 chromic and was excised with good hemostasis noted. The uterus was then returned to the patient's abdomen and surgical sites were inspected and noted to be hemostatic. Anterior peritoneum was then reapproximated with 3-0 Vicryl. The fascia was then closed with 0 Vicryl in a running nonlocking fashion. Subcutaneous tissue was then irrigated and suctioned. Subcutaneous tissue was reapproximated with 3-0 Vicryl. Several subdermal stitches were placed with 3-0 Vicryl. The skin was closed with 4-0 Monocryl in a subcuticular fashion. The incision was then cleaned and dried. Steri-Strips applied over the incision. The incision was then dressed. The patient was then taken to recovery in stable condition. Counts were correct. MTDD
[2018-12-17] MEDS: DOCUSATE SODIUM 100 MG CAP PO SCH ×2 (09:20→20:34)
[2018-12-17] MEDS: ENOXAPARIN 40 MG/0.4 ML SYRINGE (J1650) SC SCH (20:34)
[2018-12-18 02:00] VITALS: BP 111/55
[2018-12-18] MEDS: PERCOCET 5MG/325MG TAB PO PRN ×3 (03:07→12:02)
[2018-12-18 06:00] VITALS: BP 109/56
[2018-12-18] MEDS ORDERED: LOVE1INJ SC (06:37)
[2018-12-18] MEDS: DOCUSATE SODIUM 100 MG CAP PO SCH (10:09)
[2018-12-18] MEDS: PRENATAL VITAMINS CHEWABLE TABLET PO SCH (10:09)
[2018-12-24] MEDS ORDERED: OXYC1TAB23 PO (10:38)
--- NOTE | 2019-01-07 14:46 | DSES ---
DATE OF ADMISSION: 12/16/2018 DATE OF DISCHARGE: 12/18/2018 DISCHARGE DIAGNOSIS: Repeat section. DISCHARGE CONDITION: Stable. PROCEDURES PERFORMED WHILE IN HOSPITAL: 1. Spinal anesthesia. 2. section. 2. Bilateral tubal ligation using Berkey method. HISTORY AND HOSPITAL COURSE: This patient, Ms. Correia, presented for scheduled section, which was uncomplicated, productive of liveborn male infant, scores 9 and 9, weight was 7 pounds 2 ounces, 3230 grams. Estimated blood loss was 500 mL. At time of section, she had, also, a bilateral tubal ligation using Berkey method. She did well postoperatively. By postop day #2 had met all discharge criteria, was discharged home in stable condition. DISCHARGE MEDICATIONS: - Percocet - Lovenox DISCHARGE INSTRUCTIONS: 1. She was instructed to remain on Lovenox for 6 weeks . 2. Remain on pelvic rest for 6 weeks. 3. To report severe pain, heavy vaginal bleeding, fever, incisional issues. 4. Remove her dressing in 5-7 days.
== END 2018-12-18 13:40 | disposition home or self-care (01) | DRG 540 ==
LOC: M LDI 12-16 05:52 → M OBS 12-16 11:10
PROVIDERS: ADMIT Obstetrics & Gynecology; ATTEND Obstetrics & Gynecology
PROC: 0UB70ZZ Excision of Bilateral Fallopian Tubes, Open Approach (ICD-10-PCS; 2018-12-16)
PROC: 10D00Z1 Extraction of Products of Conception, Low, Open Approach (ICD-10-PCS; principal; 2018-12-16 07:30)
DX: O34.211 Maternal care for low transverse scar from previous cesarean delivery (principal); Z3A.39 39 weeks gestation of pregnancy; Z37.0 Single live birth; Z30.2 Encounter for sterilization; O99.334 Smoking (tobacco) complicating childbirth; F17.210 Nicotine dependence, cigarettes, uncomplicated

== ENCOUNTER → 2018-12-11 | Outpatient (CLI) | payer OTHER ==
[~2018-12-11] MED LIST changes: +HEPA10009 IJ
--- NOTE | 2018-12-11 17:04 | REP ---
HISTORY: Weekly biophysical profile. Multiple ultrasonographic images of the gravid uterus show a single living intrauterine gestation in the cephalic presentation. Doppler interrogation of the heart shows a heart rate of 149 beats per minute. The placenta is fundal, right side, and not low lying. Doppler interrogation of the umbilical arteries shows an AB ratio of 2.42. This is within the normal range. The umbilical cord was seen draped across the neck. The calculated amniotic fluid index is 14.2 with an expected range of 7.2 to 23.1. The subjective amniotic fluid volume is within normal limits. biophysical profile score: Breathing 2 Movement 2 Tone 2 AFV 2 Total 12/03 IMPRESSION: Limited OB ultrasound as described above. Electronically Signed by Davon Prince DO 12/14/2018 12:38 P
== END ==
LOC: M RAD 14:38
PROVIDERS: ATTEND Obstetrics & Gynecology
DX: O24.113 Pre-existing type 2 diabetes mellitus, in pregnancy, third trimester (principal)

== ENCOUNTER → 2023-02-26 | Outpatient (REF) | payer OTHER ==
[2023-02-26 17:23] LABS: C REACTIVE PROTEIN QUANTITATIV 1.8 MG/DL (<1.0)
== END ==
LOC: M LAB REF 16:28
PROVIDERS: ATTEND Family Medicine
DX: B36.0 Pityriasis versicolor (principal); K86.1 Other chronic pancreatitis; G89.29 Other chronic pain

== ENCOUNTER → 2023-06-27 | Outpatient (REF) | payer OTHER | LOC: M LAB REF 12:39 | PROVIDERS: ATTEND Family Medicine | DX: M25.531 Pain in right wrist (principal) ==

== ENCOUNTER → 2023-11-10 | Outpatient (REF) | payer OTHER | LOC: M LAB REF 16:51 | PROVIDERS: ATTEND Family Medicine | DX: G89.29 Other chronic pain (principal); M25.531 Pain in right wrist ==

== ENCOUNTER → 2023-11-19 | Outpatient (REF) | payer OTHER | LOC: M LAB REF 13:31 | PROVIDERS: ATTEND Orthopaedic Surgery | DX: G56.01 Carpal tunnel syndrome, right upper limb (principal) ==

== ENCOUNTER → 2024-01-14 | Outpatient (REF) | payer OTHER | LOC: M LAB REF 16:21 | PROVIDERS: ATTEND Family Medicine | DX: K86.1 Other chronic pancreatitis (principal); K52.839 Microscopic colitis, unspecified ==

== ENCOUNTER → 2024-04-16 | Outpatient (REF) | payer OTHER ==
[~2024-04-16] MED LIST changes: -CORTOTSO AS; +NEOM1SOL17 AS
== END ==
LOC: M LAB REF 12:06
PROVIDERS: ATTEND Family Medicine
DX: K86.1 Other chronic pancreatitis (principal)

== ENCOUNTER → 2024-07-13 | Outpatient (REF) | payer OTHER | LOC: M LAB REF 12:14 | PROVIDERS: ATTEND Family Medicine | DX: M25.50 Pain in unspecified joint (principal) ==

== ENCOUNTER → 2025-01-20 | Outpatient (REF) | payer OTHER ==
[~2025-01-20] MED LIST changes: +DOXY-442 PO; +EMTR1TAB16 PO; -NEOM1SOL17 AS; +NEOM1SOL21 AS; +NITR100C3 PO; +ONDA-282 PO; +RALT40TA PO
[2025-01-20 15:33] LABS: C REACTIVE PROTEIN QUANTITATIV 0.69 MG/DL (<1.0)
[2025-01-20 16:05] LABS: HIV 1&2 SCREEN NEGATIVE (NEGATIVE)
[2025-01-20 16:13] LABS: HEPATITIS C VIRUS ABY INDEX 0.04 INDEX (<0.8)
== END ==
LOC: M LAB REF 14:42
PROVIDERS: ATTEND Family Medicine
DX: M79.7 Fibromyalgia (principal); T76.21XA Adult sexual abuse, suspected, initial encounter; T76.31XA Adult psychological abuse, suspected, initial encounter; T76.11XA Adult physical abuse, suspected, initial encounter